=== PATIENT | female | born 1935 | race Caucasian/White ===

== ENCOUNTER 2021-12-04 10:42 | Emergency (ER) | payer MEDICAID, OTHER ==
[~2021-12-04] VITALS: Ht 157.5 cm; Wt 86.2 kg
[2021-12-04 10:55] VITALS: BP 112/83
--- NOTE | 2021-12-04 10:55 | NUR ---
PT BIBRA FROM HOME C/O L SIDED HIP AND LLE PAIN S/P [facility] LAST NIGHT [facility]. PT IS MALTESE SPEAKING, AWAKE AND VERBALLY RESPONSIVE. VITALS STABLE PERIOPERATIVE NURSE. AWAITING MD KUMARI.
--- NOTE | 2021-12-04 11:17 | NUR ---
DR SIMONS AT BEDSIDE FOR EVAL.
--- NOTE | 2021-12-04 11:43 | NUR ---
PER DIEM PHYSICAL THERAPIST AT BEDSIDE FOR BLOOD DRAW.
[2021-12-04] MEDS ORDERED: ONDANSETRON HCL/PF 4 MG/2 ML VIAL ONE (11:54)
[2021-12-04] MEDS ORDERED: MORPHINE SULFATE INJ 4 MG/ML DISP.SYRIN ONE (11:55)
[2021-12-04 11:56] LABS: BASOPHILS % (AUTO) 0.3 % (0.0-2.0); EOSINOPHILS % (AUTO) 0.7 % (0.0-6.0); HEMATOCRIT 39 % (33-45); HEMOGLOBIN 13.1 g/dL (11.5-14.8); LYMPHOCYTES # (AUTO) 1.2 K/uL (0.8-4.8); LYMPHOCYTES % (AUTO) 13.1 % (20.0-44.0); MEAN CORPUSCULAR HGB CONC 34 g/dl (31.0-36.0); MEAN CORPUSCULAR VOLUME 91 fL (82-100); MONOCYTES # (AUTO) 0.5 K/uL (0.1-1.30); MONOCYTES % (AUTO) 5.6 % (2.0-12.0); NEUTROPHILS # (AUTO) 7.5 K/uL (1.8-8.9); NEUTROPHILS % (AUTO) 80.3 % (43.0-81.0); PLATELET COUNT (AUTO) 177 K/uL (150-450); RED BLOOD CELL COUNT(AUTO) 4.26 MIL/uL (4.0-5.2); WHITE BLOOD COUNT (AUTO) 9.4 K/uL (4.3-11.0)
[2021-12-04] MEDS ORDERED: ONDANSETRON HCL/PF 4 MG/2 ML VIAL IVP ONE (12:00)
[2021-12-04] MEDS ORDERED: MORPHINE SULFATE INJ 2 MG/ML DISP.SYRIN IV ONE (12:00)
[2021-12-04 12:11] LABS: CALCIUM, SERUM 9.6 mg/dL (8.5-10.1); CREATININE 0.8 mg/dL (0.6-1.3); POTASSIUM 3.8 mmol/L (3.5-5.1)
--- NOTE | 2021-12-04 13:44 | NUR ---
CALLED [facility] FOR TRANSPORT TO [place]. ETA 1 HR.
--- NOTE | 2021-12-04 14:32 | NUR ---
SON, RICKI LEFT CONTACT # [phone]
--- NOTE | 2021-12-04 15:19 | NUR ---
ROOM [address] RECIEVING NURSE, HOMER RN NUMBER FOR REPORT [phone]
--- NOTE | 2021-12-04 16:41 | NUR ---
REPORT GIVEN TO YAZ MENDIETA. TRANSPORTED IN STABLE CONDITION.
== END 2021-12-04 16:45 | disposition short-term general hospital (02) ==
LOC: ER 10:46 → EDBD 10:46 → ER 16:45
DX: M25.562 Pain in left knee (principal); M25.552 Pain in left hip; R94.31 Abnormal electrocardiogram [ECG] [EKG]; W01.0XXA Fall on same level from slipping, tripping and stumbling without subsequent striking against object, initial encounter; Y93.89 Activity, other specified; Y92.89 Other specified places as the place of occurrence of the external cause; Y99.8 Other external cause status
CPT/HCPCS: 36415; 71045; 73503; 73564; 80048; 85025; 85730; 93005; 96374; 96375; 99285; J2270; J2405; 73502